=== PATIENT | male | born 1955 | race Caucasian/White ===

== ENCOUNTER → 2016-09-27 | Outpatient (CLI) | payer OTHER ==
[~2016-09-27] VITALS: Ht 177.8 cm; Wt 88.5 kg
[~2016-09-27] MED LIST: NS 1,000 ML IV ONE; PROPOFOL 200 MG/20 ML VIAL As Ordered ONE; SIMV40TA2 PO
--- NOTE | 2016-09-27 14:22 | ROOR ---
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 - due to location, pt was sent for cecectomy/appendectomy for this polyp. unfortunately only tip of apendix was removed and pt continues to have recurrent polyp within residual appendiceal orifice. this exam was done to re evaluate and remove any persistent polyp) Providers: Dawit ANDRADE MD Referring MD: JONO KAUFMAN MD Requesting Provider: Medicines: Monitored Anesthesia Care Complications: No immediate complications. Procedure: Pre-Anesthesia Assessment: - The heart rate, respiratory rate, oxygen saturations, blood pressure, adequacy of pulmonary ventilation, and response to care were monitored throughout the procedure. The Colonoscope was introduced through the anus and advanced to the cecum, identified by appendiceal orifice and ileocecal valve. The colonoscopy was performed without difficulty. The patient tolerated the procedure well. The quality of the bowel preparation was good. Findings: The perianal and digital rectal examinations were normal. A few medium-mouthed diverticula were found in the sigmoid colon. A 7 mm polyp was found in the appendiceal orifice. The polyp was semi-sessile. The polyp was removed with a cold snare. Polyp resection was incomplete. The resected tissue was retrieved. Polyp resection was incomplete due to the polypectomy being technically difficult and complex. Coagulation for tissue destruction using argon plasma at 0.8 liters/minute and 20 morrison was successful. Impression: - Diverticulosis in the sigmoid colon. - Recurrent 7 mm polyp within the appendiceal orifice, partially removed with a cold snare. Incomplete resection. Resected tissue retrieved. Treated with argon plasma coagulation (APC). Recommendation: - -await pathology report. -I am again considering a referral to a surgeon again for surgical resection of the area surrounding the appendix/cecum.--will discuss after pathology is back. Dawit Andrade MD Dawit ANDRADE MD 09/27/2016 2:22:22 PM This report has been signed electronically. Number of Addenda: 0 Note Initiated On: 09/27/2016 1:56 PM Estimated Blood Loss: Estimated blood loss: none.
[2016-09-27 14:45] VITALS: BP 127/88
== END | disposition home or self-care (01) ==
LOC: M OPP 11:57
PROVIDERS: ATTEND Internal Medicine Gastroenterology
DX: Z12.11 Encounter for screening for malignant neoplasm of colon (principal); D12.1 Benign neoplasm of appendix; K64.8 Other hemorrhoids; K57.30 Diverticulosis of large intestine without perforation or abscess without bleeding; Z86.010 Personal history of colon polyps; E78.5 Hyperlipidemia, unspecified; M54.5 Low back pain; Z79.899 Other long term (current) drug therapy

== ENCOUNTER → 2017-01-30 | Outpatient (CLI) | payer OTHER ==
[~2017-01-30] MED LIST changes: -NS 1,000 ML IV ONE; -PROPOFOL 200 MG/20 ML VIAL As Ordered ONE; +SIMV20TA2 PO
--- NOTE | 2017-01-30 20:53 | ECGEPIP ---
Stationary ECG Study [facility] Test Date: 2017-01-30 Pat Name: JH AGUDELO Department: Room: - Gender: M Fur Tailor: CARIE : 1955 Requested By: BRIAN DENISE Order Number: [id number] Reading MD: Dawit Read Measurements Intervals Sheldon Rate: 60 P: 60 PA: 165 QRS: -11 QRSD: 117 T: 10 QT: 416 QTc: 417 Interpretive Statements SINUS RHYTHM POSSIBLE LEFT VENTRICULAR HYPERTROPHY Nonspecific ST-T abnormalities. No prior ECG available for comparison at the time of interpretation. Electronically Signed On 01-30-2017 20:53:04 EDT by Dawit Read
== END ==
LOC: M EKG 07:19
PROVIDERS: ATTEND Anesthesiology
DX: Z01.810 Encounter for preprocedural cardiovascular examination (principal); R94.31 Abnormal electrocardiogram [ECG] [EKG]

== ENCOUNTER 2017-02-06 06:15 | Day surgery (SDC) | payer OTHER ==
[~2017-02-06] VITALS: Ht 177.8 cm; Wt 83.9 kg
[2017-02-06] MEDS ORDERED: LR 1,000 ML IV ONE (06:30)
[2017-02-06] MEDS ORDERED: LR 500 ML IV ONE (06:30)
[2017-02-06] MEDS ORDERED: ERTAPENEM SODIUM 1 GM in NS MINI-BAG PLUS 50 ML IV ONE (06:30)
[2017-02-06] MEDS ORDERED: BUPIVACAINE HCL 0.25% 30 ML VIAL As Ordered ONE (07:17)
[2017-02-06] MEDS ORDERED: PROPOFOL 200 MG/20 ML VIAL As Ordered ONE (08:16)
[2017-02-06] MEDS ORDERED: fentaNYL 100 MCG/2 ML INJECTION (J3010) As Ordered ONE (08:16)
[2017-02-06] MEDS ORDERED: LIDOCAINE 2% INJ 100 MG/5 ML SDV (FOR ANES.) As Ordered ONE (08:16)
[2017-02-06] MEDS ORDERED: MIDAZOLAM INJ 2 MG/2 ML VIAL (J2250) As Ordered ONE (08:16)
[2017-02-06] MEDS ORDERED: ONDANSETRON 4MG/2ML VIAL (J2405) As Ordered ONE (08:17)
[2017-02-06] MEDS ORDERED: dexameTHASONE 4 MG/ML 1ML VIAL (J1100) As Ordered ONE (08:17)
[2017-02-06] MEDS ORDERED: ROCURONIUM BROMIDE 50 MG/5 ML VIAL/SYRINGE As Ordered ONE ×2 (08:17→08:39)
[2017-02-06] MEDS ORDERED: PHENYLephrine HCL 500 MCG/5 ML (100MCG/ML) SYRINGE (J2370) As Ordered ONE (08:18)
[2017-02-06] MEDS ORDERED: HYDROmorphone HCL 2 MG/ML 1ML VIAL (J1170) As Ordered ONE (08:18)
[2017-02-06] MEDS ORDERED: ePHEDrine SULFATE 25 MG/5 ML(5MG/ML) SYRINGE As Ordered ONE (08:18)
[2017-02-06] MEDS ORDERED: KETOROLAC 60 MG/2 ML VIAL (J1885) As Ordered ONE (09:04)
[2017-02-06] MEDS ORDERED: NEOSTIGMINE 1MG/ML 5 ML SYRINGE (J2710) As Ordered ONE (09:08)
[2017-02-06] MEDS ORDERED: GLYCOPYRROLATE INJ 0.2 MG/ML 2 ML VIAL As Ordered ONE (09:08)
[2017-02-06] MEDS ORDERED: ACETAMINOPHEN TAB 650MG DOSE (2X325MG) PO PRN (10:00)
[2017-02-06] MEDS ORDERED: NORCO, ANEXSIA 5/325MG TABLET (HYDROcodone/ACETAMINOPHEN) PO PRN (10:00)
[2017-02-06] MEDS ORDERED: fentaNYL 100 MCG/2 ML INJECTION (J3010) IV PRN (10:00)
[2017-02-06] MEDS ORDERED: IBUPROFEN 600 MG TAB PO PRN (10:00)
[2017-02-06] MEDS ORDERED: LR 1,000 ML IV SCH (10:00)
[2017-02-06] MEDS ORDERED: ONDANSETRON 4MG/2ML VIAL (J2405) IV PRN (10:00)
[2017-02-06 10:55] VITALS: BP 142/84
--- NOTE | 2017-02-06 14:46 | RO ---
DATE OF PROCEDURE: 02/06/2017 PREOPERATIVE DIAGNOSIS: Adenomatous polyp of appendiceal orifice. POSTOPERATIVE DIAGNOSIS: Adenomatous polyp of appendiceal orifice. PROCEDURE PERFORMED: Laparoscopic partial cecectomy. SURGEON: Wicho Colunga MD RESAW FEEDER: Saravanan Mcdonald MD ANESTHESIA: General. INDICATIONS FOR PROCEDURE: Patient is a 61-year-old man who was noted some years ago to have an adenomatous polyp at the orifice of the appendix. Initially, this was resected but recurred. He saw another surgeon and an appendectomy was performed, but the orifice of the appendix was not resected. Followup endoscopy revealed recurrence of an adenomatous polyp within the lumen or orifice of the appendix. He is now for partial cecal resection to remove the appendiceal orifice and eliminate the polyp. OPERATIVE PROCEDURE: The patient was placed supine on the operating table. He was placed under general endotracheal anesthesia. The patient's abdomen was prepped and draped in a sterile fashion. 0.25% Marcaine was infiltrated at each of the trocar sites. A short supraumbilical midline incision was made and deepened through the fascia. The peritoneum was opened bluntly. A Dara cannula was inserted. The abdomen was inflated with carbon dioxide gas and a laparoscope was inserted. Initial examination showed some adhesions in the right lower quadrant of the cecum to the anterior abdominal wall. The upper abdomen showed a normal-appearing liver. Visualized loops of the small and large bowel were otherwise unremarkable. A 5 mm trocar was placed low in the midline and a second 5 mm trocar was placed in the left lower quadrant. The patient was tilted to a Trendelenburg position and tilted to the left. Using a harmonic scalpel, the adhesions of the cecum and ascending colon to the anterior abdominal wall were lysed. The cecum was freed from some inferior and posterior adhesions as well. The very short stump of the appendix was identified. The ileocecal valve location was identified clearly. A single load of a Vigilixelon stapler with a green load was placed across the cecum to remove a portion of the cecum with the appendiceal orifice contained therein. The stapler was fired and a single small thread of tissue remaining was cut. A small bleeding point at one end of the staple line was controlled with the harmonic scalpel. The portion of cecum was placed in an Endopouch and this was removed through the Dara site. The specimen was opened and the appendiceal orifice was nicely contained in the center of the specimen. This was sent for permanent pathology. Inspection of the operative area showed a couple of small bleeding points along the staple line and these were controlled with judicious use of the cautery. The right lower quadrant was irrigated and inspected and there was no sign of any further bleeding. The staple line looked good. The patient was returned to a flat position. The abdomen was deflated and the trocars were all removed. The fascia at the Dara site was closed with interrupted simple sutures of #2-0 Vicryl. The skin incisions were all closed with buried #4-0 Vicryl and Steri-Strips. Light dressings were applied. The patient tolerated the procedure well without apparent complication. He was awakened in the operating room, extubated and moved to the recovery room in stable condition. CASSY
== END 2017-02-06 10:59 | disposition home or self-care (01) ==
LOC: M SDC 06:15
PROVIDERS: ATTEND Surgery
DX: D12.1 Benign neoplasm of appendix (principal); E78.00 Pure hypercholesterolemia, unspecified; Z79.899 Other long term (current) drug therapy
CPT/HCPCS: 44204; 88307; J1100; J1170; J1335; J1885; J2250; J2370; J2405; J2710; J3010

== ENCOUNTER → 2018-09-29 | Outpatient (CLI) | payer OTHER ==
--- NOTE | 2018-09-30 03:08 | REP ---
Clinical: Cough . Comparison: None . Technique: PA and lateral. Findings: The mediastinum and cardiac silhouette are normal. The lung mcguire are clear and without acute consolidation, effusion, or pneumothorax. The skeletal structures are intact and normal. Impression: 1. No acute cardiopulmonary process. Electronically Signed by Dennis Ch MD 09/30/2018 02:59 A
== END ==
LOC: M WUC 09:54
PROVIDERS: ATTEND Internal Medicine
DX: R05 Cough (principal)

== ENCOUNTER → 2019-12-20 | Outpatient (CLI) | payer MEDICARE, OTHER ==
[~2019-12-20] MED LIST changes: -SIMV20TA2 PO; +SIMV20TA22 PO; -SIMV40TA2 PO; +SIMV40TA20 PO
[2019-12-22 00:07] LABS: PSA TOTAL 1.8 ng/mL (0.0-4.0)
== END ==
LOC: M WUC 08:20
PROVIDERS: ATTEND Nurse Practitioner Women's Health
DX: R97.20 Elevated prostate specific antigen [PSA] (principal)

== ENCOUNTER → 2020-03-22 | Outpatient (CLI) | payer MEDICARE | LOC: M LABSMTC 10:58 | PROVIDERS: ATTEND Anesthesiology | DX: Z01.812 Encounter for preprocedural laboratory examination (principal); Z20.828 Contact with and (suspected) exposure to other viral communicable diseases | CPT/HCPCS: C9803; U0003 ==

== ENCOUNTER 2020-03-27 09:19 | Day surgery (SDC) | payer MEDICARE ==
[~2020-03-27] VITALS: Ht 177.8 cm; Wt 83.9 kg
[~2020-03-27 09:19] MED LIST changes: +NS 1,000 ML IV ONE
--- NOTE | 2020-03-27 11:31 | ROOR ---
Patient Name: Noah Caceres Procedure Date: 03/27/2020 11:04 AM Date of : 1955 Age: 64 Room: [facility] Gender: Male Note Status: Finalized Procedure: Colonoscopy Indications: High risk colon cancer surveillance: Personal history of colonic polyps (History of intra appendiceal tubulovillous adenoma--resected surgically--Appendectomy with cecal floor) Providers: Dawit GREWAL MD Referring MD: JONO KAUFMAN MD Requesting Provider: Medicines: Monitored Anesthesia Care Complications: No immediate complications. Procedure: Pre-Anesthesia Assessment: - The heart rate, respiratory rate, oxygen saturations, blood pressure, adequacy of pulmonary ventilation, and response to care were monitored throughout the procedure. The Colonoscope was introduced through the anus and advanced to the terminal ileum, with identification of the appendiceal orifice and IC valve. The colonoscopy was performed without difficulty. The patient tolerated the procedure well. The quality of the bowel preparation was good. Findings: The perianal and digital rectal examinations were normal. A medium scar was found in the cecum. The scar tissue was healthy in appearance. Two sessile polyps were found in the sigmoid colon and hepatic flexure. The polyps were diminutive in size. These polyps were removed with a cold snare. Resection and retrieval were complete. Multiple small and large-mouthed diverticula were found in the sigmoid colon. Internal hemorrhoids were found during retroflexion. The hemorrhoids were medium-sized. The exam was otherwise without abnormality on direct and retroflexion views. Impression: - Scar in the cecum. - Two diminutive polyps in the sigmoid colon and at the hepatic flexure, removed with a cold snare. Resected and retrieved. - Diverticulosis in the sigmoid colon. - Internal hemorrhoids. - The examination was otherwise normal on direct and retroflexion views. Recommendation: - Repeat colonoscopy in 5 years for surveillance. Dawit Grewal MD Dawit GREWAL MD 03/27/2020 11:30:20 AM Electronically signed by Dawit GREWAL MD Number of Addenda: 0 Note Initiated On: 03/27/2020 11:04 AM Estimated Blood Loss: Estimated blood loss: none.
[2020-03-27 11:45] VITALS: BP 117/64
== END 2020-03-27 12:15 | disposition home or self-care (01) ==
LOC: M OPP 09:19
PROVIDERS: ATTEND Internal Medicine Gastroenterology
DX: Z12.11 Encounter for screening for malignant neoplasm of colon (principal); Z86.010 Personal history of colon polyps; K63.89 Other specified diseases of intestine; K63.5 Polyp of colon; K64.8 Other hemorrhoids; K57.30 Diverticulosis of large intestine without perforation or abscess without bleeding; Z79.899 Other long term (current) drug therapy

== ENCOUNTER → 2020-05-08 | Outpatient (CLI) | payer SELFPAY ==
[~2020-05-08] MED LIST changes: -NS 1,000 ML IV ONE
== END ==
LOC: M LABSMTC 12:29
PROVIDERS: ATTEND Pediatrics
DX: Z20.828 Contact with and (suspected) exposure to other viral communicable diseases (principal)